=== PATIENT | male | born 1945 | race Caucasian/White ===

== ENCOUNTER → 2020-01-22 | Outpatient (CLI) | payer MEDICARE, OTHER ==
[~2020-01-22] MED LIST: HYDACE5 PO; RXHYDACE PO
== END | disposition home or self-care (01) ==
LOC: PLD 12:14 → LAB SHORT 12:14
DX: R30.0 Dysuria (principal)
CPT/HCPCS: 87077; 87086; 87186

== ENCOUNTER → 2020-02-08 | Outpatient (CLI) | payer MEDICARE, OTHER ==
[2020-02-08 12:22] LABS: BASOPHILS ABSOLUTE AUTO 0.06 K/mm3 (0.00-0.23); BASOPHILS PERCENT AUTO 1 % (0-2); EOSINOPHILS ABSOLUTE AUTO 0.13 K/mm3 (0.00-0.68); EOSINOPHILS PERCENT AUTO 2 % (0-6); Hematocrit 32.8 % (37.0-53.0); Hemoglobin 10.2 g/dL (13.5-17.5); IMMATURE GRAN ABSOLUTE AUTO 0.02 K/mm3 (0.00-0.10); IMMATURE GRAN PERCENT AUTO 0 % (0-1); LYMPHOCYTES PERCENT AUTO 10 % (21-46); MONOCYTES ABSOLUTE AUTO 0.77 K/mm3 (0.16-1.47); MONOCYTES PERCENT AUTO 10 % (4-13); Mean Corpuscular HGB 30.6 pg (26.0-34.0); Mean Corpuscular HGB Conc 31.1 g/dL (31.5-36.5); Mean Corpuscular Volume 99 fL (80-100); Mean Platelet Volume 11.7 fL (9.1-12.4); NEUTROPHILS ABSOLUTE AUTO 6.21 K/mm3 (1.96-9.15); NEUTROPHILS PERCENT AUTO 78 % (41-73); Platelet Count 216 K/mm3 (150-400); RDW Standard Deviation 50.5 fL (35.1-46.3); Red Blood Cell Count 3.33 M/mm3 (4.30-5.90); White Blood Cell Count 7.99 K/mm3 (4.00-11.30)
[2020-02-08 12:35] LABS: Anion Gap 3 mmol/L (6-16); Blood Urea Nitrogen 24 mg/dL (8-24); Bun/Creatinine Ratio 23.3 (12.0-20.0); CO2, Blood 31 mmol/L (21-32); Calcium, Blood 8.9 mg/dL (8.5-10.1); Chloride, Blood 111 mmol/L (98-108); Creatinine, Blood 1.03 mg/dL (0.60-1.20); Glomerular Filtration Rate >60 (60-); Glucose, Blood 118 mg/dL (70-99); Potassium, Blood 3.9 mmol/L (3.5-5.5); Sodium, Blood 145 mmol/L (136-145)
== END | disposition home or self-care (01) ==
LOC: LAB SHORT 12:16
PROVIDERS: Physician Assistant
DX: R30.0 Dysuria (principal)
CPT/HCPCS: 80048; 85025; 87077; 87086; 87186

== ENCOUNTER → 2021-01-20 | Outpatient (CLI) | payer MEDICARE, OTHER | END | disposition home or self-care (01) | LOC: LAB SHORT 08:40 | DX: R30.0 Dysuria (principal) | CPT/HCPCS: 87086 ==

== ENCOUNTER 2022-12-10 11:11 | Day surgery (SDC) | payer MEDICARE, OTHER ==
[~2022-12-10] VITALS: Ht 182.9 cm; Wt 97.6 kg
[2022-12-10] VITALS (16 sets, daily range): BP systolic 116–164; BP diastolic 64–89
[~2022-12-10 11:11] MED LIST changes: +COQ1050 MG PO; +Calcium Acetat667 MG PO; +FELODIPINE ER5 M2 PO; +FISH OIL PO; +LATANOPROST2.5 M3 BOTHEYES; +LOSA25 PO; +MAGNESIUM PO; +TURMERIC500 M2 PO
[2022-12-10] MEDS ORDERED: ESCI10 PO (11:50)
--- NOTE | 2022-12-10 12:33 | NUR ---
Ambulatory in Day Surgery. History, Chart, Medications and Allergies reviewed before start of procedure. Lungs clear T/O to Auscultation. Patient confirms NPO status and agrees with scheduled surgery. Pre-Op teaching done. Pt verbalizes understanding. Patient States Post-Procedure ride home has been arranged. PT BELONGINGS PLACED UNDERNEATH GURNEY FOR SAFEKEEPING. PT GLASSES TAKEN TO PACU FOR SAFEKEEPING.
[2022-12-11 03:44] VITALS: BP 122/77
--- NOTE | 2022-12-11 04:52 | NUR ---
SHIFT SUMMARY POD 1 R TKA. NO ACUTE CHANGES OVERNIGHT. VS WNL FOR PT, PT REPORTS SINUS SHYAM IN 40s IS HIS BASELINE, AYSYMPTOMATIC. JAELYN WRAP C/D/I, POLAR PACK IN PLACE. BRISK CAP REFILL. PT TOLERATING ORALS. PAIN REPORTED TOLERABLE, MEDICATED PER EMAR. AMBULATING VIA FWW c GB & SBA. PT URINATES INDEPENDENTLY, REPORTS PASSING FLATUS BUT NO BM. PT HAD MILD CONCERN FOR URINARY RETENTION S/P SPINAL, ONCE THE PT REPORTED FULL RETURN OF SENSATION HE WAS ABLE TO URINATE WITHOUT CONCERN, REFLECTED c BLADDER SCANS. CALL LIGHT WITHIN REACH, BED IN LOWEST POSITION, WILL REPORT TO DAY RN.
[2022-12-11 04:55] LABS: BASOPHILS ABSOLUTE AUTO 0.04 K/mm3 (0.00-0.23); BASOPHILS PERCENT AUTO 1 % (0-2); EOSINOPHILS ABSOLUTE AUTO 0.25 K/mm3 (0.00-0.68); EOSINOPHILS PERCENT AUTO 3 % (0-6); Hematocrit 35.6 % (37.0-53.0); Hemoglobin 12.3 g/dL (13.5-17.5); IMMATURE GRAN ABSOLUTE AUTO 0.03 K/mm3 (0.00-0.10); IMMATURE GRAN PERCENT AUTO 0 % (0-1); LYMPHOCYTES ABSOLUTE AUTO 0.98 K/mm3 (0.84-5.20); LYMPHOCYTES PERCENT AUTO 12 % (21-46); MONOCYTES ABSOLUTE AUTO 0.78 K/mm3 (0.16-1.47); MONOCYTES PERCENT AUTO 9 % (4-13); Mean Corpuscular HGB 32.4 pg (26.0-34.0); Mean Corpuscular HGB Conc 34.6 g/dL (31.5-36.5); Mean Corpuscular Volume 94 fL (80-100); Mean Platelet Volume 11.3 fL (9.1-12.4); NEUTROPHILS ABSOLUTE AUTO 6.19 K/mm3 (1.96-9.15); NEUTROPHILS PERCENT AUTO 75 % (41-73); Platelet Count 137 K/mm3 (150-400); RDW Coefficient Variation 12.7 % (11.7-14.2); RDW Standard Deviation 43.7 fL (35.1-46.3); White Blood Cell Count 8.27 K/mm3 (4.00-11.30)
[2022-12-11 05:30] LABS: Calcium, Blood 8.3 mg/dL (8.5-10.1); Potassium, Blood 3.8 mmol/L (3.5-5.5)
[2022-12-11 07:13] VITALS: BP 120/72
[2022-12-11] MEDS ORDERED: Percocet 5-3251 EACH PO (09:23)
[2022-12-11] MEDS ORDERED: ASPIR 8181 M1 PO (09:24)
--- NOTE | 2022-12-11 09:54 | NUR ---
DISCHARGE NOTE: PATIENT AND PATIENTS WERE EDUCATED ON DISCHARGE INSTRUCTIONS. BOTH VERBALIZED UNDERSTANDING OF INSTRUCTIONS AND HAD NO FURTHER QUESTIONS AT THIS TIME. IV WAS TAKEN OUT AND WNL. HARD PERSCRIPTIONS WERE GIVEN TO . PAIN IS MANAGED WITH PO PAIN MEDS. HIS RIGHT KNEE HAS X2 AQUACEL THAT ARE C/D/I. DENIES NUMBNESS OR TINGLING. HE IS A SBA WITH FWW AND GAIT BELT. HE IS TOLERATING PO INTAKE AND IS VOIDING. PATIENT IS DRESSED AND HAS PERSONAL ITEMS IN THE ROOM GATHERED. HE WAS WHEELCHAIRED OUT TO HIS WIFES CAR TO BE TAKEN HOME.
== END 2022-12-11 09:56 | disposition home or self-care (01) ==
LOC: ORSCMMR 11:11 → ORD 12:15 → ORSCMMR 12:30 → ORD 12:30 → SURS 18:04 → ORSCMMR 12-11 09:56
PROVIDERS: Orthopaedic Surgery
PROC: 0SRC0JA Replacement of Right Knee Joint with Synthetic Substitute, Uncemented, Open Approach (ICD-10-PCS; principal; 2022-12-10 15:30)
DX: M17.11 Unilateral primary osteoarthritis, right knee (principal); I10 Essential (primary) hypertension; G47.33 Obstructive sleep apnea (adult) (pediatric)
CPT/HCPCS: 36415; 73560-RT; 80048; 85025; 97110; 97116; 97162; A9270; C1713; C1776; J0171; J0690; J0735; J1885; J2250; J2405; J2704; J2795; J3010; J7120

== ENCOUNTER 2023-06-17 06:19 | Day surgery (SDC) | payer MEDICARE, OTHER ==
[~2023-06-17] VITALS: Ht 182.9 cm; Wt 96.5 kg
[~2023-06-17 06:19] MED LIST changes: +ASPIR 8181 M1 PO; +ESCI10 PO; +Percocet 5-3251 EACH PO
[2023-06-17] MEDS ORDERED: NS 50 ML IV ONE (06:23)
[2023-06-17] MEDS ORDERED: Lactated Ringer's 1,000 ML IV ONE ×4 (06:23→09:10)
[2023-06-17] MEDS ORDERED: CeFAZolin Sodium 2,000 MG VIAL ONE (06:23)
[2023-06-17] MEDS ORDERED: Bupivacaine 0.5% HCl 5 MG/ML 30MLVIAL ONE (07:04)
[2023-06-17] MEDS ORDERED: Midazolam HCl 1MG / ML 2ML Vial ONE (07:05)
[2023-06-17] MEDS ORDERED: EPINEPhrine HCl 1 MG / ML 30ML Vial ONE (07:07)
[2023-06-17] MEDS ORDERED: Lidocaine 1%-Epineph 1:100000 20 ML MDV ONE (07:07)
[2023-06-17] MEDS ORDERED: propofoL 20 ML IV ONE (07:29)
[2023-06-17] MEDS ORDERED: Rocuronium Bromide 10 MG/ML 5ML Injection IV ONE ×2 (07:30→09:05)
[2023-06-17] MEDS ORDERED: FentaNYL Citrate 50 MCG/ML 2 ML Injection ONE (07:30)
[2023-06-17] MEDS ORDERED: Glycopyrrolate 0.2 MG/ML 5ML VIAL ONE ×2 (07:39→11:06)
[2023-06-17] MEDS ORDERED: EPINEPhrine HCl 1 MG/ML 1ML Amp XX ONE (08:05)
[2023-06-17] MEDS ORDERED: ePHEDrine Sulfate 50 MG/ML 1ML Injection ONE (08:11)
--- NOTE | 2023-06-17 08:12 | NUR ---
06/17/23 0812 Yani Barry EPI 1MG (1MG/ML) ADDED TO THE FIRST 3 BAGS OF LR FOR IRRIGATION AT [facility].
[2023-06-17] MEDS ORDERED: Sugammadex Sodium 200 MG/2ML SDV (100 MG/ML) ONE (09:06)
--- NOTE | 2023-06-17 10:09 | NUR ---
06/17/23 1009 MAGALY KAYO BEING GIVEN NOW BY DR. BAILEY. IRREG. HEART BEAT
[2023-06-17] MEDS ORDERED: Atropine Sulfate 0.4 MG/1 ML Vial ONE (11:06)
[2023-06-17 11:07] VITALS: BP 141/86
--- NOTE | 2023-06-17 11:43 | NUR ---
06/17/23 1143 MAGALY KAY IN AT BEDSIDE. POLAR PACK ATTACHED. AWARE OF USE HE HAS HAD ONE BEFORE.
== END 2023-06-17 12:12 | disposition home or self-care (01) ==
LOC: ORSCSDS 06:19
PROVIDERS: Orthopaedic Surgery Sports Medicine
PROC: 0LM14ZZ Reattachment of Right Shoulder Tendon, Percutaneous Endoscopic Approach (ICD-10-PCS; principal; 2023-06-17 07:30)
PROC: 0RNJ4ZZ Release Right Shoulder Joint, Percutaneous Endoscopic Approach (ICD-10-PCS; principal; 2023-06-17 07:30)
DX: M75.121 Complete rotator cuff tear or rupture of right shoulder, not specified as traumatic (principal); M75.41 Impingement syndrome of right shoulder; M71.9 Bursopathy, unspecified; I10 Essential (primary) hypertension; G47.33 Obstructive sleep apnea (adult) (pediatric); Z79.899 Other long term (current) drug therapy
CPT/HCPCS: C1713; J0171; J0461; J0690; J2250; J2704; J3010; J7120